=== PATIENT | male | born 1985 | race Two or more races ===

== ENCOUNTER 2023-08-23 20:42 | Emergency (ER) | payer SELFPAY ==
[2023-08-23 20:45] VITALS: BP 155/108; PULSE 99; RESP 18; TEMP 36.7; O2SAT 98
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
[2023-08-23] MEDS: KETOROLAC TROMETHAMINE 60 MG/2 ML VIAL IM (22:22)
== END 2023-08-23 22:34 | disposition home or self-care (01) ==
PROVIDERS: Emergency Provider Emergency Medicine; PCP Nurse Practitioner Family
DX: S09.8XXA Other specified injuries of head, initial encounter (principal); S00.01XA Abrasion of scalp, initial encounter; S00.83XA Contusion of other part of head, initial encounter; R68.84 Jaw pain; V43.52XA Car driver injured in collision with other type car in traffic accident, initial encounter; F17.210 Nicotine dependence, cigarettes, uncomplicated
CPT/HCPCS: 70450; 70486; 72125; 96372; 99285

== ENCOUNTER 2024-03-19 22:37 | Emergency (ER) | payer MEDICAID, SELFPAY ==
--- OUTSIDE RECORDS SUMMARY | 2024-03-19 22:44 | XMS_ITS | CCD ---
Author Organization [facility] ion 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 Name Role Phone TANIA CARMONA Unavailable Unavailable GHADA FELICIANO Unavailable Unavailable TANIA, RUDDY R Unavailable Unavailable TANIA, RUDDY R Unavailable Unavailable MATTHEW HERMOSILLO Unavailable Unavailable KHADIJAH MCKEON Admitting Unavailable KHADIJAH MCKEON Attending Unavailable SELF, REFERRED Primary Care Unavailable SELF, REFERRED Referring Unavailable CO Procedure Practitioner Unavailab KHADIJAH Brown Surgeon Unavailable AYLEEN SALEEM Admitting Unavailable AYLEEN SALEEM Attending Unavailable SELF, REFERRED Primary Care Unavailable SELF, REFERRED Referring Unavailable FAHAD AYERS Admitting Unavailable MAFAHAD Attending Unavailable SELF, REFERRED Primary Care Unavailable SELF, REFERRED Referring Unavailable Gianni Han Attending Unavailab Gianni Tucker Admitting Unavailab le TRISTEN STAFF Primary Care Unavailable ABBY CRUZ Primary Care Unavailable ABBY CRUZ Primary Care Unavailable MALDONADO, MARILYN Attending Unavailable MALDONADOMARILYN Referring Unavailable ABBY CRUZ Primary Care Unavailable Allergies Allergy Classification Reported Allergen(s) Allergy Type Date of Onset Reaction(s) Facility (1 source) Valproate Drug Allergy 8 [facility] Repository (1 source) Valproate; Translations: [DIVALPROEX SODIUM] Drug Allergy 7 [facility] Repository (1 source) DIVALPROEX; Translations: [DIVALPROEX] Propensity to adverse reactions to drug (disorder) 9 [facility] Repository Problems Active Problems Problem Classification Problem Date Documented Da te Episodic/Chronic Epilepsy; convulsions (1 source) Other generalized epilepsy and epileptic syndromes, not intractable, without status epilepticus; Translations: [OTH GENERALIZED EPILEPSY, NOT INTRACTABLE, W/O STAT EPI] Onset: 03-08-2018 Chronic External cause codes: Other specified; NEC (1 source) Legal intervention involving other specified means, suspect injured, initial encounter; Translations: [LEGAL INTERVNT INVOLVING OTH MEANS, SUSPECT INJURED, INIT] Onset: 01-17-2019 Headache; including migraine (1 source) Headache; including migraine Onset: 12-03-2023 Nonspecific chest pain (5 sources) Chest pain, unspecified; Translations: [Other chest pain] Onset: 11-19-2017 Episodic Other injuries and conditions due to external causes (1 source) Foreign body on external eye, part unspecified, right eye, initial encounter; Translations: [FOREIGN BODY ON EXTERNAL EYE, PART UNSP, RIGHT EYE, INIT] Onset: 01-17-2019 Other injuries and conditions due to external causes (1 source) Foreign body on external eye, part unspecified, left eye, initial encounter; Translations: [FOREIGN BODY ON EXTERNAL EYE, PART UNSP, LEFT EYE, INIT] Onset: 01-17-2019 Other lower respiratory disease (1 source) Hemoptysis; Translations: [HEMOPTYSIS] Onset: 11-25-2018 Episodic Other nervous system disorders (1 source) Other chronic pain; Translations: [Other chronic pain] Onset: 11-19-2017 Chronic Other non-traumatic joint disorders (1 source) Pain in left hip; Translations: [Pain in left hip] Onset: 03-07-2024 Episodic Other non-traumatic joint disorders (1 source) Hip pain Onset: 03-07-2024 Episodic Substance-related disorders (1 source) Nicotine dependence, cigarettes, uncomplicated; Translations: [NICOTINE DEPENDENCE, CIGARETTES, UNCOMPLICATED] Onset: 11-25-2018 Chronic Unclassified (2 sources) C/O VOMITING BLOOD Onset: 11-25-2018 Unclassified (4 sources) Other specified disorders of eye and adnexa; Translations: [OTHER SPECIFIED DISORDERS OF EYE AND ADNEXA] Onset: 01-17-2019 Unclassified (1 source) Cold Like Symptoms Onset: 12-03-2023 Past or Other Problems Problem Classification Problem Date Documented Date Episodic/Chronic Chronic obstructive pulmonary disease and bronchiectasis (1 source) Bronchitis, not specified as acute or chronic; Translations: [Bronchitis, not specified as acute or chronic] Onset: 12-03-2023 Episodic Epilepsy; convulsions (4 sources) Unspecified convulsions; Translations: [Unspecified convulsions] Onset: 06-28-2017 Episodic Intracranial injury (1 source) Personal history of traumatic brain injury; Translations: [PERSONAL HISTORY OF TRAUMATIC BRAIN INJURY] Onset: 03-08-2018 Episodic Other non-traumatic joint disorders (1 source) Pain in right shoulder; Translations: [Pain in right shoulder] Onset: 11-19-2017 Episodic Residual codes; unclassified (1 source) Patient's other noncompliance with medication regimen; Translations: [PATIENT'S OTHER NONCOMPLIANCE WITH MEDICATION REGIMEN] Onset: 03-08-2018 Episodic Superficial injury; contusion (1 source) Abrasion of other part of head, initial encounter; Translations: [ABRASION OF OTHER PART OF HEAD, INITIAL ENCOUNTER] Onset: 03-08-2018 Episodic Results Test Name Value Interpretation Reference Range Facility XR HIP LT 2-3 VIEWS W OR WO PELVISon 03-07-2024 XR HIP LT 2-3 VIEWS W OR WO PELVIS XR HIP LT 2-3 VIEWS W OR WO PELVIS CLINICAL INFORMATION: L hip pain TECHNIQUE: XR HIP LT 2-3 VIEWS W OR WO PELVIS 3 views left hip were obtained. Mild left hip osteoarthritic changes noted. There is no acute fracture. No malalignment. IMPRESSION: Mild osteoarthritis. Finalized by Santiago Burton MD on 03/07/2024 6:29 PM [facility] SARS/FLU A+B/RSV by NAAT/[facility]2023 SARS/FLU A+B/RSV by NAAT/Molecular FLU A PCR Negative (qualifier value) FLU B PCR Negative (qualifier value) RSV by PCR Negative (qualifier value) SARS CoV 2 Not detected (qualifier value) NOTE The Xpert Xpress SARS-CoV-2/Flu/RSV Plus test is a rapid, multiplexed real-time RT-PCR test intended for the simultaneous qualitative detection and differentiation of SARS-CoV-2, influenza A, influenza B and respiratory syncytial virus (RSV) viral RNA from individuals suspected of respiratory viral infection consistent with COVID-19 by their healthcare provider. This test has not been validated in asymptomatic patients. The Xpert Xpress SARS-CoV-2 test is intended for use by qualified and trained operators who are performing tests using either Agnitus or Art of the Dream systems and is limited to laboratories that meet the CLIA requirements to perform high and moderate complexity tests. The Xpert Xpress SARS-CoV-2/Flu/RSV Plus is only for use under the Food and Drug Administration's Emergency Use Authorization. Results are for the simultaneous detection and differentiation of SARS-CoV-2, influenza A, influenza B and RSV nucleic acids in clinical specimens. SARS-CoV-2, influenza A, influenza B and RSV RNA identified by this test are generally detectable in upper respiratory samples during the acute phase of infection. Positive results are indicative of the presence of the identified virus, but do not rule out bacterial infection or co-infection with other pathogens not detected by this test. Clinical correlation with patient history and other diagnostic information is necessary to determine patient infection status. The agent detected may not be the definite cause of disease. Negative results do not preclude SARS-CoV-2, influenza A, influenza B and RSV infection and should not be used as the sole basis for treatment or other patient management decisions. Negative results must be combined with clinical observations, patient history and epidemiological information. An Invalid result may occur with specimen-associated inhibition unable to be resolved with specimen repeat. Fact Sheet for Healthcare Providers: https://www.fda.gov/media /682176/download Fact Sheet for Patients: https://www.fda.gov/media /920099/download Normal [facility] Comment on above: Performed By: #### C OVFLR #### [facility] ([id number]) [address] [place] [address], [place] [address] CBC W/DIFFon 11-25-2018 ABS BASOPHILS 0.1 10*3/uL Normal 0.0-0.2 [facility] Comment on above: Performed By: #### 5 0103 #### [facility] [address] [facility]. [address] ABS IMM GRANS 0.0 10*3/uL Normal 0.0-0.2 [facility] Comment on above: Performed By: #### 5 0103 #### [facility] [address] [facility]. [address] ABS NEUTROPHILS 3.1 10*3/uL Normal 1.6-7.6 [facility] Comment on above: Performed By: #### 5 0103 #### [facility] [address] [facility] [address] Basophils #/vol (Bld) 0.9 % Normal 0.0-1.0 [facility] Comment on above: Performed By: #### 5 0103 #### [facility] [address] [facility] [address] Eosinophils #/vol (Bld) 0.6 10*3/uL High 0.0-0.5 [facility] Comment on above: Performed By: #### 0103 #### [facility] [address] Eosinophils/100 WBC (Bld) 9.1 % High 0.0-6.0 [facility] Comment on above: Performed By: #### 3 #### [facility] [address] [facility]. [address] Erythrocyte distribution width Ratio (RBC) 13.4 % Normal 11.5-15.0 [facility] Comment on above: Performed By: #### 5 3 #### [facility] [address] Hematocrit Volume Fraction (Bld) 48.0 % Normal 39.0-50.0 [facility] Comment on above: Performed By: #### 5 3 #### [facility] [address] [facility]. [address] Hemoglobin mass conc (Bld) 16.3 g/dL Normal 13.0-17.0 [facility] Comment on above: Performed By: #### 5 3 #### [facility] [address] IMMATURE GRANS 0.3 % Normal 0.0-1.0 [facility] Comment on above: Performed By: #### 5 3 #### [facility] [address] Lymphocytes #/vol (Bld) 2.2 10*3/uL Normal 1.2-4.0 [facility] Comment on above: Performed By: #### 5 0103 #### [facility] [address] [facility] [place] [address], [facility] Lymphocytes/100 WBC (Bld) 32.8 % Normal 20.0-45.0 [facility] Comment on above: Performed By: #### 0103 #### [facility] [address] MCH Entitic mass (RBC) 30.9 pg Normal 27.0-33.0 [facility] Comment on above: Performed By: #### 3 #### [facility] [address] MCHC mass conc (RBC) 34.0 g/dL Normal 32.0-35.0 [facility] Comment on above: Performed By: #### 3 #### [facility] [address] MCV Entitic volume (RBC) 90.9 fL Normal 82.0-98.0 [facility] Comment on above: Performed By: #### 3 #### [facility] [address] [place] [address], [facility] Monocytes #/vol (Bld) 0.8 10*3/uL Normal 0.1-1.0 [facility] Comment on above: Performed By: #### 3 #### [facility] [address] [place] [address], [facility] MONOS 12.3 % High 5.0-12.0 [facility] Comment on above: Performed By: #### 3 #### [facility] [address] [place] [address], [facility] Neutrophils/100 WBC (Bld) 44.6 % Normal 40.0-72.0 [facility] Comment on above: Performed By: #### 5 0103 #### [address] Nucleated RBC/100 WBC Ratio (Bld) 0 % Normal 0-0 [facility] Comment on above: Performed By: #### 5 0103 #### [facility] [address] PLAT CNT 297 10*3/uL Normal 150-400 [facility] Comment on above: Performed By: #### 5 0103 #### [address] RBC #/vol (Bld) 5.28 10*6/uL Normal 4.20-5.70 [facility] Comment on above: Performed By: #### 5 0103 #### [address] WBC #/vol (Bld) 6.83 10*3/uL Normal 4.00-10.60 [facility] Comment on above: Performed By: #### 5 0103 #### [address] CHEST AND LATERALon 11-25-19 19 CHEST AND LATERAL [facility] Department of Radiology [address] [place], [place] [id number] Patient Name: MEERA GEORGE : 1985 Sex: M Age: Race: White Pt. Location: [facility] Patient Status: D Ordered Date: 11/25/2018 7:50:00 AM Completed Date: 11/25/2018 08:16 AM Requesting Provider: KHADIJAH MCKEON Attending Provider: KHADIJAH MCKEON Report Copy To: Signs & Symptoms: Acute Respiratory Distress History: Patient history not available Comments: R/O Infiltrates Exam: CHEST AND LATERAL CHEST AND LATERAL 11/25/2018 8:16 AM EST SIGNS AND SYMPTOMS: Acute Respiratory Distress TECHNOLOGIST COMMENTS: Chest pain and shortness of breath X 1 year. Vomiting blood with a coffee ground appearance QUESTION FOR THE RADIOLOGIST: R/O Infiltrates PROTOCOL: AP(PA) and Lateral views were obtained. COMPARISON: November 19, 2017 FINDINGS: The trachea is midline and the cardiomediastinal silhouette is within normal limits. Lung vazquez and costophrenic sulci are clear. No evidence of pneumothorax or free air under the diaphragm. No acute osseous abnormality is identified. IMPRESSION: No evidence of pneumonia or other acute cardiopulmonary process. Approved by:Cassandra Pedraza on 11/25/2018 9:04 AM EST. I, Lana Kaminski, have reviewed the images and report and concur with these findings. Electronically signed by:Lana Kaminski. Transcribed by: [id number], User Resident: CASSANDRA PEDRAZA Electronically Signed by: LANA KAMINSKI @ 11/25/2018 04:22 PM I personally read this/these film(s) with this resident Normal [facility] Comment on above: Order Comment: R/O I nfiltrates COMP METABOLIC PANELon 11-25 Albumin mass conc 4.5 g/dL Normal 3.5-5.7 [facility] Comment on above: Performed By: #### 3 5200, 23970, 86613 #### [facility] [address] [place] [address], [facility] ALKALINE PHOSPH 84 IU/L Normal 34-104 [facility] Comment on above: Performed By: #### 3 5200, 31448, 80593 #### [facility] [address] [place] [address], [place] ALT enzyme act/vol 17 U/L Normal 7-52 [facility] Comment on above: Performed By: #### 3 5200, 21920, 59943 #### [facility] [address] [place] [address], [place] AST enzyme act/vol 18 U/L Normal 13-39 [facility] Comment on above: Performed By: #### 3 5200, 21027, 76976 #### [facility] [address] [place] [address], [place] Bilirubin mass conc 0.4 mg/dL Normal 0.3-1.0 [facility] Comment on above: Performed By: #### 3 0, 35753, 53898 #### [facility] [address] [place] [address], [place] Calcium mass conc 9.2 mg/dL Normal 8.6-10.3 [facility] Comment on above: Performed By: #### 3 0, 69670, 68234 #### [facility] [address] [place] [address], [place] Chloride molar conc 103 mmol/L Normal 98-107 [facility] Comment on above: Performed By: #### 3 0, 83916, 26387 #### [facility] [address] [place] [address], [place] CO2 molar conc 24 mmol/L Normal 21-31 [facility] Comment on above: Performed By: #### 3 5200, 96085, 15754 #### [facility] [address] [place] [address], [place] Creatinine mass conc 0.84 mg/dL Normal 0.70-1.30 [facility] Comment on above: Performed By: #### 3 5200, 97725, 12770 #### [facility] [address] [place] [address], [place] GFR/1.73 sq M predicted among blacks MDRD vol rate/area (S/P/Bld) mL/min/{1.73_m2} Normal >60 [facility] Comment on above: Performed By: #### 3 5200, 21448, 51409 #### [facility] [address] [place] [address], [place] GFR/1.73 sq M predicted among non-blacks MDRD vol rate/area (S/P/Bld) mL/min/{1.73_m2} Normal >60 [facility] Comment on above: Performed By: #### 3 5200, 22927, 51824 #### [facility] [address] [place] [address], [place] Glucose mass conc 89 mg/dL Normal 70-100 [facility] Comment on above: Performed By: #### 3 5200, 49080, 83415 #### [facility] [address] [place] [address], [place] Potassium molar conc 3.8 mmol/L Normal 3.5-5.1 [facility] Comment on above: Performed By: #### 3 5200, 09545, 14533 #### [facility] [address] [place] [address], [place] Protein mass conc 7.5 g/dL Normal 6.0-8.3 [facility] Comment on above: Performed By: #### 3 5200, 43080, 22504 #### [facility] [address] [place] [address], [place] Sodium molar conc 140 mmol/L Normal 136-145 [facility] Comment on above: Performed By: #### 3 5200, 97064, 94987 #### [facility] [address] [place] [address], [facility] Urea nitrogen mass conc 10 mg/dL Normal 7-25 [facility] Comment on above: Performed By: #### 3 5200, 46626, 05645 #### [facility] [address] [place] [address], [facility] LIPASE BLOODon 11-25-2018 Lipase enzyme act/vol 19 Units/L Normal 11-82 [facility] Comment on above: Performed By: #### 3 5200, 92826, 56122 #### [facility] [address] [place] [address], [facility] TROPONIN-Ion 11-25-2018 Troponin I.cardiac mass conc 0.00 ng/mL Normal 0.00-0.04 [facility] Comment on above: Result Comment: REFE RENCE RANGES: 0.00 - 0.14 ng/ml NEGATIVE 0.15 - 0.25 ng/ml INDETERMINATE > 0.25 ng/ml INDICATIVE OF AN M.I. Performed By: #### 3 5200, 37543, 66970 #### [facility] [address] [facility] [place] [address], [facility] XR CHEST (2 VW)on 11-19-2017 XR CHEST (2 VW) EXAMINATION:2 VIEWS OF THE RIGHT SCAPULA; TWO VIEWS OF THE CHEST11/19/2017 3:28 pmCOMPARISON:Chest radiograph 12/03/2016, shoulder radiographs 02/27/2013, CT 12/03/2016HISTORY:ORDERIN G SYSTEM PROVIDED HISTORY: pain right shoulderTECHNOLOGIST PROVIDED HISTORY:Reason for exam:->pain right shoulderOrdering Physician Provided Reason for Exam: shoulder painAcuity: AcuteType of Exam: InitialFINDINGS:Chest: Lungs are well expanded and clear. No pneumothorax, pleural effusionor airspace consolidation. Normal heart size and mediastinal contours.Normal pulmonary vascular markings. No displaced rib fracture or any otheracute osseous abnormality.Scapula: Right scapula is intact. No fracture or malalignment. Limitedevaluation of shoulder demonstrate normal anatomic alignment withoutdislocation.IMPRES VIRI: No acute cardiopulmonary findings.Scapula appears intact.Interpreted by:SCAR Torrezigned by:Ronny Hernandez MD11/19/17inal result Normal [facility] XR SCAPULA RIGHT (COMPLETE)o n 11-19-2017 XR SCAPULA RIGHT (COMPLETE) EXAMINATION:2 VIEWS OF THE RIGHT SCAPULA; TWO VIEWS OF THE CHEST11/19/2017 3:28 pmCOMPARISON:Chest radiograph 12/03/2016, shoulder radiographs 02/27/2013, CT 12/03/2016HISTORY:ORDERIN G SYSTEM PROVIDED HISTORY: pain right shoulderTECHNOLOGIST PROVIDED HISTORY:Reason for exam:->pain right shoulderOrdering Physician Provided Reason for Exam: shoulder painAcuity: AcuteType of Exam: InitialFINDINGS:Chest: Lungs are well expanded and clear. No pneumothorax, pleural effusionor airspace consolidation. Normal heart size and mediastinal contours.Normal pulmonary vascular markings. No displaced rib fracture or any otheracute osseous abnormality.Scapula: Right scapula is intact. No fracture or malalignment. Limitedevaluation of shoulder demonstrate normal anatomic alignment withoutdislocation.IMPRES VIRI: No acute cardiopulmonary findings.Scapula appears intact.Interpreted by:SCAR Torrezigned by:oRnny Hernandez MD11/19/17inal result Normal [facility] Zonegramon 06-30-2017 Zonegram <2 Low 10-40 [facility] Comment on above: Result Comment: (NOT E)INTERPRETIVE INFORMATION: ZonisamideTherapeutic range: Not well established.Toxic: Greater than 80 ug/mLThe proposed therapeutic range for seizure control is 10-40 ug/mL.Toxic concentrations may cause coma, seizures and cardiacabnormalities. Pharmacokinetics varies widely, particularly withco-medications and/or compromised renal function.Performed by [facility],[address] [place] [id number] ycb.[employer], Bernardo Wheat MD, Lab. [address] [id number] ([phone] Performed By: #### C DP, BMP, EDTOX, AZON ####[place] [place], [place] [id number] Basic Metabolic Profon 10-02 -2017 (cont.) Normal [facility] Comment on above: Result Comment: Aver age GFR for 30-39 years old: 107 mL/min/1.73sq mChronic Kidney Disease: <60 mL/min/1.73sq mKidney failure: <15 mL/min/1.73sq meGFR calculated using average adult body mass. Additional eGFR calculator available at:http://[email or web address]/multiple_crcl_[email or web address] [facility] [address] [place] [address] Performed By: #### C BC, BMP ####[facility] [address] [place] [address] Anion gap 15 mmol/L Normal 9-17 [facility] Comment on above: Performed By: #### C BC, BMP ####[facility] HospitalStudent [facility] Advisors GroupXeacrbgekoyu[address] [place] [address] Calcium 8.5 mg/dL Low 8.6-10.4 [facility] Comment on above: Performed By: #### C BC, BMP ####[facility] HospitalStudent Loan Advisors GroupYwebfojniebc[address] [place] [address] Chloride 102 mmol/L Normal 98-107 [facility] Comment on above: Performed By: #### C BC, BMP ####[facility] HospitalStudent [facility] Advisors GroupVwieiytshlll[address] [place] [address] CO2 22 mmol/L Normal 20-31 [facility] Comment on above: Performed By: #### C BC, BMP ####[facility] Hospital[facility] Advisors GroupRtvqybsqdjuy4682 [place] [address] Creatinine 1.11 mg/dL Normal 0.70-1.20 [facility] Comment on above: Performed By: #### C BC, BMP ####[facility] HospitalStudent Loan Advisors GroupApbtyypcstpk1573 [place] [address] eGFR (non-black) mL/min/{1.73_m2} Normal >[address] [facility] Comment on above: Performed By: #### C BC, BMP ####[facility] [place] [address] Glucose mass conc 88 mg/dL Normal 70-99 [facility] Comment on above: Performed By: #### C BC, BMP ####[facility] [place] [address] Potassium molar conc 3.9 mmol/L Normal 3.7-5.3 [facility] Comment on above: Performed By: #### C BC, BMP ####[address] [address] Sodium 139 mmol/L Normal 135-144 [facility] Comment on above: Performed By: #### C BC, BMP ####[address] [address] Urea nitrogen 13 mg/dL Normal -20 [facility] Comment on above: Performed By: #### C BC, BMP ####[facility] [place] [address] BUN/CRE Ratio NOT REPORTED Normal - [facility] Comment on above: Performed By: #### C BC, BMP ####[address] [place] [address] Staging: NOT REPORTED Normal [facility] Comment on above: Performed By: #### C BC, BMP ####[facility]2222 [place] [address] CBCon 06-29-2017 Erythrocyte distribution width Auto Ratio (RBC) 13.7 % Normal 12.5-15.4 [facility] Comment on above: Performed By: #### C BC, BMP ####[facility] [place] [address] Erythrocytes (RBC) 4.58 10*6/uL Normal 4.5-5.9 [facility] Comment on above: Performed By: #### C BC, BMP ####[address] [address] Hematocrit (HCT) 41.8 % Normal 41-53 [facility] Comment on above: Performed By: #### C BC, BMP ####[address] [address] Hemoglobin mass conc (Bld) 14.5 g/dL Normal 13.5-17.5 [facility] Comment on above: Performed By: #### C BC, BMP ####[address] [address] MCH 31.8 pg Normal 26-34 [facility] Comment on above: Performed By: #### C BC, BMP ####[address] [address] MCHC mass conc (RBC) 34.8 g/dL Normal 31-37 [facility] Comment on above: Performed By: #### C BC, BMP ####[address] [address] MCV 91.1 fL Normal 80-100 [facility] Comment on above: Performed By: #### C BC, BMP ####[address] [address] Platelet mean volume (PMV) 7.7 fL Normal 6.0-12.0 [facility] Comment on above: Result Comment: [facility] [address] [place] [address] Performed By: #### C BC, BMP ####[address] [address] Platelets 213 10*3/uL Normal 140-450 [facility] Comment on above: Performed By: #### C BC, BMP ####[address] [address] WBC (Leukocytes) 14.3 10*3/uL High 3.5-11.0 [facility] Comment on above: Performed By: #### C BC, BMP ####[address] [address] Discharge Summaryon 06-29-20 17 HIM IP Note OR Loan And Credit Manager Normal [facility] Ammoniaon 06-28-2017 Ammonia 34 umol/L Normal 16-60 [facility] Comment on above: Result Comment: [address] [address] Performed By: #### A MON, CK, MG, PRITESH, ANDREW, TSHX ####[address] [address] Basic Metabolic Profon 06-28 (cont.) Normal [facility] Comment on above: Result Comment: Aver age GFR for 30-39 years old: 107 mL/min/1.73sq mChronic Kidney Disease: <60 mL/min/1.73sq mKidney failure: <15 mL/min/1.73sq meGFR calculated using average adult body mass. Additional eGFR calculator available at:http://www.[employer].Triggit/multiple_crcl_2012.htmVirginia [place] [address] [place] [address] Performed By: #### C DP, BMP, EDTOX, AZON ####[address] [address] Anion gap 32 mmol/L High 9-17 [facility] Comment on above: Performed By: #### C DP, BMP, EDTOX, AZON ####[address] [address] Calcium 9.1 mg/dL Normal 8.6-10.4 [facility] Comment on above: Performed By: #### C DP, BMP, EDTOX, AZON ####[facility] [address] [place] [address] Chloride 95 mmol/L Low 98-107 [facility] Comment on above: Performed By: #### C DP, BMP, EDTOX, AZON ####[address] [place] [address] CO2 13 mmol/L Low 20-31 [facility] Comment on above: Performed By: #### C DP, BMP, EDTOX, AZON ####[facility] [place] [address] Creatinine 1.09 mg/dL Normal 0.70-1.20 [facility] Comment on above: Performed By: #### C DP, BMP, EDTOX, AZON ####[address] [address] eGFR (non-black) mL/min/{1.73_m2} Normal >[address] [facility] Comment on above: Performed By: #### C DP, BMP, EDTOX, AZON ####[facility] [place] [address] Glucose mass conc 132 mg/dL High 70-99 [facility] Comment on above: Performed By: #### C DP, BMP, EDTOX, AZON ####[facility] [place] [address] Potassium molar conc 3.4 mmol/L Low 3.7-5.3 [facility] Comment on above: Performed By: #### C DP, BMP, EDTOX, AZON ####[address] [place] [address] Sodium 140 mmol/L Normal 135-144 [facility] Comment on above: Performed By: #### C DP, BMP, EDTOX, AZON ####[address] [address] Urea nitrogen 14 mg/dL Normal -20 [facility] Comment on above: Performed By: #### C DP, BMP, EDTOX, AZON ####[address] [address] BUN/CRE Ratio NOT REPORTED Normal - [facility] Comment on above: Performed By: #### C DP, BMP, EDTOX, AZON ####[address] [address] Staging: NOT REPORTED Normal [facility] Comment on above: Performed By: #### C DP, BMP, EDTOX, AZON ####[address] [address] CBC with Diffon 06-28-2017 Abs. Basophil 0.10 k/uL Normal 0.0-0.2 [facility] Comment on above: Result Comment: [address] [address] Performed By: #### C DP, BMP, EDTOX, AZON ####[address] [address] Abs.Neutrophil (Seg) 13.40 k/uL High 1.8-7.7 [facility] Comment on above: Performed By: #### C DP, BMP, EDTOX, AZON ####[address] [address] Basophils/100 WBC Auto (Bld) 0 % Normal [facility] Comment on above: Performed By: #### C DP, BMP, EDTOX, AZON ####[address] [address] Eosinophils 0.10 10*3/uL Normal 0.0-0.4 [facility] Comment on above: Performed By: #### C DP, BMP, EDTOX, AZON ####[address] [address] Eosinophils/100 leukocytes 1 % Normal [facility] Comment on above: Performed By: #### C DP, BMP, EDTOX, AZON ####[address] [address] Erythrocyte distribution width Auto Ratio (RBC) 14.3 % Normal 12.5-15.4 [facility] Comment on above: Performed By: #### C DP, BMP, EDTOX, AZON ####[address] [address] Erythrocytes (RBC) 5.50 10*6/uL Normal 4.5-5.9 [facility] Comment on above: Performed By: #### C DP, BMP, EDTOX, AZON ####[address] [address] Hematocrit (HCT) 51.0 % Normal 41-53 [facility] Comment on above: Performed By: #### C DP, BMP, EDTOX, AZON ####[address] [address] Hemoglobin mass conc (Bld) 17.1 g/dL Normal 13.5-17.5 [facility] Comment on above: Performed By: #### C DP, BMP, EDTOX, AZON ####[address] [address] Lymphocytes 3.20 10*3/uL Normal 1.0-4.8 [facility] Comment on above: Performed By: #### C DP, BMP, EDTOX, AZON ####[address] [address] Lymphocytes/100 leukocytes 18 % Normal [facility] Comment on above: Performed By: #### C DP, BMP, EDTOX, AZON ####[address] [address] MCH 31.1 pg Normal 26-34 [facility] Comment on above: Performed By: #### C DP, BMP, EDTOX, AZON ####[address] [address] MCHC mass conc (RBC) 33.6 g/dL Normal 31-37 [facility] Comment on above: Performed By: #### C DP, BMP, EDTOX, AZON ####[address] [address] MCV 92.6 fL Normal 80-100 [facility] Comment on above: Performed By: #### C DP, BMP, EDTOX, AZON ####[address] [address] Monocytes 1.20 10*3/uL Normal 0.1-1.2 [facility] Comment on above: Performed By: #### C DP, BMP, EDTOX, AZON ####[address] [address] Monocytes/100 leukocytes 7 % Normal [facility] Comment on above: Performed By: #### C DP, BMP, EDTOX, AZON ####[address] [address] Neutrophil (Seg) 74 % Normal [facility] Comment on above: Performed By: #### C DP, BMP, EDTOX, AZON ####[address] [address] Platelet mean volume (PMV) 8.2 fL Normal 6.0-12.0 [facility] Comment on above: Performed By: #### C DP, BMP, EDTOX, AZON ####[address] [address] Platelets 318 10*3/uL Normal 140-450 [facility] Comment on above: Performed By: #### C DP, BMP, EDTOX, AZON ####[address] [address] WBC (Leukocytes) 18.0 10*3/uL High 3.5-11.0 [facility] Comment on above: Performed By: #### C DP, BMP, EDTOX, AZON ####[address] [address] Auto Diff Performed NOT REPORTED Normal [facility] Comment on above: Performed By: #### C DP, BMP, EDTOX, AZON ####[facility] [address] [address] Erythrocyte morphology NOT REPORTED Normal [facility] Comment on above: Performed By: #### C DP, BMP, EDTOX, AZON ####[address] [address] Platelets NOT REPORTED Normal [facility] Comment on above: Performed By: #### C DP, BMP, EDTOX, AZON ####[address] [address] WBC Morphology NOT REPORTED Normal [facility] Comment on above: Performed By: #### C DP, BMP, EDTOX, AZON ####[address] [address] [address] HEAD WO CONTRASTon 2016 CT HEAD WO CONTRAST EXAMINATION:CT OF TH E HEAD WITHOUT CONTRAST 06/28/2017 4:52 pmTECHNIQUE:CT of the head was performed without the administration of intravenouscontrast. Dose modulation, iterative reconstruction, and/or weight basedadjustment of the mA/kV was utilized to reduce the radiation dose to as lowas reasonably achievable.COMPARISON:NovHISTORY:ORDERING SYSTEM PROVIDED HISTORY: seizuresFINDINGS:BRAIN/VE NTRICLES: There is no acute intracranial hemorrhage, mass effect ormidline shift. No abnormal extra-axial fluid collection. The mattson-whitedifferentiation is maintained without evidence of an acute infarct. There isno evidence of hydrocephalus.ORBITS: The visualized portion of the orbits demonstrate no acute abnormality.SINUSES: The visualized paranasal sinuses and mastoid air cells demonstrateno acute abnormality.SOFT TISSUES/SKULL: No acute abnormality of the visualized skull or softtissues.IMPRESSION: Negative CT brain with no acute intracranial abnormality.Interpreted by:SCRA Wilburnigned by:Elizabeth Higgins MD06/28/17Final result Normal [facility] Creatine Kinaseon 06-28-2017 Creatine kinase (CK) 191 U/L Normal 39-308 [facility] Comment on above: Result Comment: Daily [employer] [address] [place] [address] Performed By: #### A MON, CK, MG, PRITESH, ANDREW, TSHX ####[facility] [address] [place] [address] Drug Scr, Abuse, Uron 2016 Amphetamine(s),Ur Negative Normal NEG [facility] Comment on above: Result Comment: (Pos itive cutoff 1000 ng/mL) Performed By: #### D AU ####[employer] [place] [address] Barbiturate(s),Ur Negative Normal NEG [facility] Comment on above: Result Comment: (Pos itive cutoff 200 ng/mL) Performed By: #### D AU ####[facility] HospitalStudent Loan Advisors GroupQmnysolrkunw[address] [place] [address] Base excess Negative Normal NEG [facility] Comment on above: Result Comment: (Pos itive cutoff 300 ng/mL) Performed By: #### D AU ####[facility] Hospital[facility] Loan Advisors GroupBeaguclzdije[address]2 [place] [address] Benzodiazepine(s) Negative Normal NEG [facility] Comment on above: Result Comment: (Pos itive cutoff 200 ng/mL) Performed By: #### D AU ####[facility] HospitalStudent Loan Advisors GroupLaocfqrtwfpf[address] [place] [address] Cannabinoid(s),Ur Positive Abnormal NEG [facility] Comment on above: Result Comment: (Pos itive cutoff 50 ng/mL) Performed By: #### D AU ####[address] [address] Interpretive Info Assay provides medic al screening only. The absence of expected drug(s) and/or Normal [facility] Comment on above: Result Comment: meta bolite(s) may indicate diluted or adulterated urine, limitations of testing or timing of collection.Testing for legal purposes should be confirmed by another method. To request confirmation of test result, please call the lab within 7 days of sample submission.[employer] [address] [place] [address] Performed By: #### D AU ####[facility] HospitalPivot[facility] [address] [address] Opiate(s), Ur Negative Normal NEG [facility] Comment on above: Result Comment: (Pos itive cutoff 300 ng/mL) Performed By: #### D AU ####[facility] HospitalStudent Loan Advisors GroupWrigpuiyxhdq[address] [place] [address] Oxycodone, Urine Negative Normal NEG [facility] Comment on above: Result Comment: (Pos itive cutoff 100 ng/mL) Performed By: #### D AU ####[facility] HospitalStudent Loan Advisors GroupZzesobkchzin[address] [place] [address] Phencyclidine, Ur Negative Normal NEG [facility] Comment on above: Result Comment: (Pos itive cutoff 25 ng/mL) Performed By: #### D AU ####[facility] HospitalStudent Loan Advisors GroupQfpqvmdhuwzk[address]35 [place] [address] Urine, methadone presence Negative Normal NEG [facility] Comment on above: Result Comment: (Pos itive cutoff 300 ng/mL) Performed By: #### D AU ####[employer] [address] [address] Buprenorphrine, Ur NOT REPORTED Normal NEG [facility] Comment on above: Performed By: #### D AU ####[facility] [address] [address] MDMA, Urine NOT REPORTED Normal NEG [facility] Comment on above: Performed By: #### D AU ####[address] [address] Methamphetamine, Ur NOT REPORTED Normal NEG [facility] Comment on above: Performed By: #### D AU ####[address] [address] Propoxyphene,Urine NOT REPORTED Normal NEG [facility] Comment on above: Performed By: #### D AU ####[address] [address] Urine, tricyclic antidepressants NOT REPORTED Normal NEG [facility] Comment on above: Performed By: #### D AU ####[address] [address] ED Noteon 06-28-2017 HIM IP Note OR Loan And Credit Manager Normal [facility] HIM IP Note OR Loan And Credit Manager Normal [facility] HIM IP Note OR Loan And Credit Manager Normal [facility] HIM IP Note OR Loan And Credit Manager Normal [facility] HIM IP Note OR Loan And Credit Manager Normal [facility] HIM IP Note OR Loan And Credit Manager Normal [facility] ED Provider Noteon 7 HIM IP Note OR Loan And Credit Manager Normal [facility] History and Physicalon 06-28 HIM IP Note OR Loan And Credit Manager Normal [facility] Magnesiumon 06-28-2017 Magnesium 2.3 mg/dL Normal 1.6-2.6 [facility] Comment on above: Result Comment: [facility] [address] [place] [address] Performed By: #### A MON, CK, MG, PRITESH, ANDREW, TSHX ####[address] [address] Myoglobinon 06-28-2017 Myoglobin 81 ng/mL High 28-72 [facility] Comment on above: Result Comment: [facility] [address] [place] [address] Performed By: #### A MON, CK, MG, PRITESH, ANDREW, TSHX ####[address] [address] Phosphorus, Inorg.on 017 Phosphorus, Inorg. 3.9 mg/dL Normal 2.5-4.5 [facility] Comment on above: Result Comment: [employer] [address] [place] [address] Performed By: #### A MON, CK, MG, PRITESH, ANDREW, TSHX ####[address] [address] TSH w/reflex to FT4on 2016 Thyroid stimulating hormone (TSH) 0.39 m[IU]/L Normal 0.30-5.00 [facility] Comment on above: Result Comment: [facility] [address] [place] [address] Performed By: #### A MON, CK, MG, PRITESH, ANDREW, TSHX ####[address] [address] Tox Scr, Bld, EDon 7 Acetaminophen mass conc <10 Low 10-30 [facility] Comment on above: Performed By: #### C DP, BMP, EDTOX, AZON ####[facility] [address] [place] [address] Salicylate <1 Low 3-10 [facility] Comment on above: Performed By: #### C DP, BMP, EDTOX, AZON ####[facility] [address] [place] [address] Ethanol mg/dL Normal <10 [facility] Comment on above: Performed By: #### C DP, BMP, EDTOX, AZON ####[facility] [address] [place] [address] Ethanol percent <0.010 Normal [facility] Comment on above: Performed By: #### C DP, BMP, EDTOX, AZON ####[address] [address] Toxic Tricyclic Sc,Bl Negative Normal NEG [facility] Comment on above: Result Comment: [address] [place] [address] Performed By: #### C DP, BMP, EDTOX, AZON ####[address] [address] Encounters Encounter Date Encounter Type Care Provider Facility Start: 03-07-2024 End: 03-08-2024 Emergency department patient visit MARILYN MALDONADO [facility] Start: 12-03-2023 End: 12-03-2023 Emergency department patient visit ABBY CRUZ [facility] Start: 07-06-2023 ambulatory Gianni Garza acility:[facility] Start: 01-17-2019 End: 01-17-2019 Emergency department patient visit AYLEEN SALEEM Facility:[facility] Start: 11-25-2018 End: 11-25-2018 Emergency department patient visit KHADIJAH MCKEON Facility:[facility] Start: 03-08-2018 End: 03-08-2018 Emergency department patient visit FAHAD MA Facility:[facility] Start: 11-19-2017 End: 11-19-2017 Emergency department patient visit TANIA CARMONA [facility] Start: 06-28-2017 End: 06-29-2017 Evaluation and management of inpatient GHADA LOBAR [facility] Procedures Date Procedure Procedure Detail Performing Clinician Start: 11-25-2018 Emergency department patient visit KHADIJAH Walsh MIKE Start: 11-19-2017 Radiologic exam chest 2 views TANIA CARMONA Start: 11-19-2017 Radex scapula complete TANIA CARMONA Start: 11-19-2017 EKG 12-LEAD TANIA YATES IS Start: 06-29-2017 DISCHARGE PATIENT GHADA LOBAR Start: 06-29-2017 TELEMETRY MONITORING BR UCE LOBAR Start: 06-29-2017 BASIC METABOLIC PANEL B RUCE LOBAR Start: 06-29-2017 CBC GHADA LOBA R Start: 06-29-2017 DIET GENERAL GHADA LOBA R Start: 06-28-2017 AMMONIA GHADA LOBA R Start: 06-28-2017 CK GHADA LOBA R Start: 06-28-2017 MAGNESIUM GHADA LOBA R Start: 06-28-2017 MYOGLOBIN, SERUM GHADA LOBAR Start: 06-28-2017 PHOSPHORUS GHADA LOBA R Start: 06-28-2017 TSH WITH REFLEX GHADA L OBAR Start: 06-28-2017 NURSING SWALLOW ASSESSMENT GHADA LOBAR Start: 06-28-2017 PATIENT STATUS (FROM ED OR OR/PROCEDURAL) GHADA LOBAR Start: 06-28-2017 FULL CODE GHADA LOBA R Start: 06-28-2017 NOTIFY PHYSICIAN (SPECIFY) GHADA LOBAR Start: 06-28-2017 REASON FOR NO MECHAN ICAL VTE PROPHYLAXIS GHADA LOBAR Start: 06-28-2017 VITAL SIGNS GHADA LOBA R Start: 06-28-2017 Ct head/brain w/o co ntrast material GHADA LOBAR Start: 06-28-2017 PATIENT STATUS (FROM ED OR OR/PROCEDURAL) GHADA LOBAR Start: 06-28-2017 IP CONSULT TO MARINE PLUMBER AL MEDICINE GHADA LOBAR Start: 06-28-2017 IP CONSULT TO NEUROLOGY GHADA LOBAR Start: 06-28-2017 URINE DRUG SCREEN GHADA LOBAR Start: 06-28-2017 SEIZURE PRECAUTIONS BRU CE LOBAR Start: 06-28-2017 BASIC METABOLIC PANEL B RUCE LOBAR Start: 06-28-2017 CBC WITH AUTO DIFFERENTIAL GHADA LOBAR Start: 10-01-2017 TOX SCR, BLD, ED GHADA LOBAR Start: 06-28-2017 ZONISAMIDE LEVEL GHADA LOBAR Start: 06-28-2017 INSERT PERIPHERAL IV BR UCE LOBAR Payers Date Payer Category Payer Self-pay 2015 Unknown [id number] 2010 Medicaid [id number] 1985 Unknown [id number] [id number] 1986 Unknown [id number] 2.16.8 [id number] 1986 Unknown [id number] 2.16.8 [id number] 1986 Unknown [id number] 2.16.8 [id number] 1986 Unknown [id number] 2.16.8 [id number] Summary Purpose Family History No Family History Records FoundNo Family History Records FoundNo Family History Records FoundNo Family History Records FoundNo Family History Records Found Advance Directives No Advanced Directives Records FoundNo Advanced Directives Records FoundNo Advanced Directives Records FoundNo Advanced Directives Records FoundNo Advanced Directives Records Found Additional Source Comments (unrecognized sect ion and content) No Status Records FoundNo Status Records FoundNo Status Records FoundNo Status Records Found INFORMATION SOURCE (unrecogn ized section and content) DATE CREATED AUTHOR 03/19/2018 [facility] DATE CREATED AUTHOR AUTHOR'S ORGANIZ ATION 03/23/2018 [facility] DATE CREATED AUTHOR AUTHOR'S ORGANIZ ATION 02/15/2019 [facility] DATE CREATED AUTHOR AUTHOR'S ORGANIZ ATION 10/17/2023 [facility] DATE CREATED AUTHOR AUTHOR'S ORGANIZ ATION 03/08/2024 [facility] FOR RECORDS PERTAINING TO PATIENTS WHO ARE OR HAVE BEEN ENROLLED IN A CHEMICAL DEPENDENCY/SUBSTANCEABUSE PROGRAM, SOME INFORMATION MAY BE OMITTED. This clinical summary was aggregated from multiple sources. Caution should be exercised in using it in the provision of clinical care. This summary normalizes information from multiple sources, and as a consequence, information in this document may materially change the coding, format and clinical context of patient data. In addition, data may be omitted in some cases. CLINICAL DECISIONS SHOULD BE BASED ON THE PRIMARY CLINICAL RECORDS. [facility] [email or web address] [facility]. provides no warranty or guarantee of the accuracy or completeness of information in this document.
[2024-03-19 22:59] VITALS: BP 132/86; PULSE 70; TEMP 36.9; O2SAT 98; BMI 25.0
--- NOTE | 2024-03-19 23:06 | XR_ITS ---
The [address] [address] Patient Name: MEERA GEORGE MRN: [id number] date: 1985 Sex: M Assigned Patient Location: ER Current Patient Location: ED.MAIN Accession/Order Number: [id number] Exam Date: 03/19/2024 23:20 Report Date: 03/20/2024 00:40 At the request of: KYREE VILLA Procedure: XR hand RT min 3V EXAM: XR hand RT min 3V, XR wrist RT min 3V HISTORY: injury COMPARISON: None. TECHNIQUE: 3 views of the right wrist and 3 views of the right hand were obtained. FINDINGS: No acute fracture or dislocation is seen. There is remote posttraumatic deformity of the fifth metacarpal mid shaft. The joint spaces are preserved. XR/XR hand RT min 3V IMPRESSION: 1. No acute fracture or dislocation of the right wrist or right hand is seen. If pain persists, repeat radiographs are recommended in 7-10 days. Electronically authenticated by: Song FLEMING Date: 03/20/2024 00:40
--- NOTE | 2024-03-19 23:07 | XR_ITS ---
The [address] [address] Patient Name: MEERA GEORGE MRN: [id number] date: 1985 Sex: M Assigned Patient Location: ER Current Patient Location: ED.MAIN Accession/Order Number: [id number] Exam Date: 03/19/2024 23:20 Report Date: 03/20/2024 00:40 At the request of: KYREE VILLA Procedure: XR wrist RT min 3V EXAM: XR hand RT min 3V, XR wrist RT min 3V HISTORY: injury COMPARISON: None. TECHNIQUE: 3 views of the right wrist and 3 views of the right hand were obtained. FINDINGS: No acute fracture or dislocation is seen. There is remote posttraumatic deformity of the fifth metacarpal mid shaft. The joint spaces are preserved. XR/XR wrist RT min 3V IMPRESSION: 1. No acute fracture or dislocation of the right wrist or right hand is seen. If pain persists, repeat radiographs are recommended in 7-10 days. Electronically authenticated by: Song FLEMING Date: 03/20/2024 00:40
--- NOTE | 2024-03-19 23:08 | PC.NURSE ---
Pain and swelling to right hand, skin pink and warm and pulses present. Ice pack applied.
--- NOTE | 2024-03-19 23:32 | ED.UPPEXIN1 ---
HPI HPI - Extremity Injury (Upper) General Chief Complaint: Extremity Injury, Upper Stated Complaint: UPPER EXTREMITY INJURY, RT Time Seen by Provider: 03/19/24 23:24 Mode of arrival: walk-in History of Present Illness HPI narrative: patient presents with right hand injury. States he was upset and punched the wall . now presents with pain and swelling right hand and wrist Related Data Previous Rx's ?Medication ?Instructions ?Recorded methocarbamol 750 mg tablet 750 mg PO Q6H PRN pain #30 tabs 08/23/23 nabumetone 750 mg tablet 750 mg PO BID PRN pain #20 tabs 08/23/23 Allergies Allergy/AdvReac Type Severity Reaction Status Date / Time levetiracetam [From [facility]] Allergy Unknown Verified 03/19/24 22:59 seizure meds Allergy Unknown Uncoded 03/19/24 22:59 Opioid HPI Opioid Management Most Recent Pain and Opioid Data: No Data to Display Review of Systems ROS Status of ROS 10 or more systems reviewed and unremarkable except as noted in history and below PFSH PFSH Social History Smoking status: Current every day smoker Exam Constitutional Vital Signs, click to edit/add: Last Vital Signs Temp 98.4 F 03/19/24 22:59 Pulse 70 03/19/24 22:59 Resp 18 03/19/24 22:59 BP 132/86 03/19/24 22:59 Pulse Ox 98 03/19/24 22:59 O2 Del Method Room Air 03/19/24 22:59 Common normals: no apparent distress, average body habitus, oriented x3, no limitations, healthy appearing, alert and well nourished [facility] Common normals: normocephalic and head/scalp atraumatic Respiratory Common normals: normal respiratory effort, no retractions, no use of accessory muscles and clear to auscultation bilaterally Cardio Common normals: regular rate, regular rhythm, S1 normal heart sound and S2 normal heart sound Extremity Other: swelling of 2nd and 3rd MCP joints. tender. also tender at wrist. N/V ok Neuro Common normals: oriented x3, CN's II-XII intact bilaterally, moves all extremities, no focal motor deficits and no sensory deficits noted Psych Appearance: grossly normal Course Vital Signs Vital signs: Vital Signs Temperature 98.4 F 03/19/24 22:59 Pulse Rate 70 03/19/24 22:59 Respiratory Rate 18 03/19/24 22:59 Blood Pressure 132/86 03/19/24 22:59 Pulse Oximetry 98 03/19/24 22:59 Oxygen Delivery Method Room Air 03/19/24 22:59 Temperature 98.4 F 03/19/24 22:59 Pulse Rate 70 03/19/24 22:59 Respiratory Rate 18 03/19/24 22:59 Blood Pressure 132/86 03/19/24 22:59 Pulse Oximetry 98 03/19/24 22:59 Oxygen Delivery Method Room Air 03/19/24 22:59 MDM - Extremity Injury (Upper) MDM Narrative Medical decision making narrative: patient presents with right hand and wrist pain. states he struck the wall because he was mad. has swelling at 2nd and rd MCP joints which he states is chronic. has pain of his hand and wrist that is gen. and nonspecific. xray neg for fracture per my preliminary review of the xray. Patient informed of the finding and the plan to splint his hand and wrist. He decided he did not want the splint and walked out without discharge instructions Discharge Plan Discharge Chief Complaint: Extremity Injury, Upper Clinical Impression: Contusion of hand, right, Right wrist sprain Prescriptions / Home Meds: No Action nabumetone 750 mg tablet 750 mg PO BID PRN (Reason: pain) Qty: 20 0RF methocarbamol 750 mg tablet 750 mg PO Q6H PRN (Reason: pain) Qty: 30 0RF Print Language: [place] Referrals: ABBY CRUZ [Primary Care Provider] - 1 week
--- NOTE | 2024-03-19 23:47 | PC.NURSE ---
pt left without his splint placed and left with out being discharged
== END 2024-03-19 23:51 | disposition left against medical advice (07) ==
PROVIDERS: Emergency Provider Internal Medicine; PCP Nurse Practitioner Family
DX: S63.501A Unspecified sprain of right wrist, initial encounter (principal); S60.221A Contusion of right hand, initial encounter; W22.01XA Walked into wall, initial encounter; F17.200 Nicotine dependence, unspecified, uncomplicated; Z53.29 Procedure and treatment not carried out because of patient's decision for other reasons
CPT/HCPCS: 73110; 73130; 99284

== ENCOUNTER 2024-11-21 15:44 | Emergency (ER) | payer SELFPAY ==
[2024-11-21 15:51] VITALS: BP 125/80; PULSE 83; TEMP 36.7; O2SAT 100; BMI 28.2
--- NOTE | 2024-11-21 16:35 | XR_ITS ---
[facility] [place] [id number] Patient Name: MEERA GEORGE MRN: [id number] date: 1985 Sex: M Assigned Patient Location: ED.MAIN Current Patient Location: ER Accession/Order Number: [id number] Exam Date: 11/21/2024 16:55 Report Date: 11/21/2024 16:55 At the request of: ORLANDO RICKS Procedure: XR foot RT min 3V XR foot RT min 3V 11/21/2024 4:44 PM SIGNS AND SYMPTOMS: Fall, lateral right foot pain PROTOCOL: Frontal, lateral, and oblique radiographs of the right foot COMPARISON: None FINDINGS: The bones are in anatomic alignment. The joint spaces are preserved. There is no evidence of acute displaced fracture. No significant soft tissue swelling. There is Achilles surface calcaneal spurring. XR/XR foot RT min 3V IMPRESSION: No fracture or significant soft tissue swelling. Impression dictated by: Hernando Weinstein M.D.11/21/2024 4:55 PM Dictation Location: [place] [address] Electronically authenticated by: [id number] Y Date: 11/21/2024 16:55
--- NOTE | 2024-11-21 16:35 | XR_ITS ---
[address] [address] Patient Name: MEERA GEORGE MRN: [id number] date: 1985 Sex: M Assigned Patient Location: ED.MAIN Current Patient Location: ER Accession/Order Number: [id number] Exam Date: 11/21/2024 16:54 Report Date: 11/21/2024 16:55 At the request of: ORLANDO RICKS Procedure: XR ankle RT min 3V XR ankle RT min 3V 11/21/2024 4:44 PM SIGNS AND SYMPTOMS: Fall with right ankle pain and lateral right foot pain PROTOCOL: Frontal, lateral, and oblique radiographs of the right ankle COMPARISON: None FINDINGS: The ankle mortise preserved. There is no evidence of fracture or dislocation. No significant soft tissue swelling. XR/XR ankle RT min 3V IMPRESSION: No fracture or significant soft tissue swelling. Impression dictated by: Hernando Weinstein M.D.11/21/2024 4:55 PM Dictation Location: [place] [address] Electronically authenticated by: [id number] Y Date: 11/21/2024 16:55
--- NOTE | 2024-11-21 18:02 | ED.LOWEXI1 ---
HPI HPI - Extremity Injury (Lower) General Chief Complaint: Extremity Injury, Lower Stated Complaint: RIGHT FOOT PAIN Time Seen by Provider: 11/21/24 17:54 Source: patient Mode of arrival: walk-in Limitations: no limitations History of Present Illness HPI Narrative: Patient is a 39-year-old male who presents to the emergency department for an injury to the right foot that occurred yesterday. Patient states he twisted his right foot yesterday and today is having worsening pain, swelling and bruising to the right fifth metatarsal into the toes. He is ambulatory. No other associated injuries. Related Data Previous Rx's ?Medication ?Instructions ?Recorded ketorolac 10 mg tablet 10 mg PO TID PRN pain #10 tabs 11/21/24 Allergies Allergy/AdvReac Type Severity Reaction Status Date / Time levetiracetam (From [facility]) Allergy Unknown Verified 03/19/24 22:59 seizure meds Allergy Unknown Uncoded 03/19/24 22:59 Opioid HPI Opioid Management Most Recent Pain and Opioid Data: No Data to Display Review of Systems ROS Constitutional Denies: fever or chills Ears, nose, mouth, and throat Denies: throat pain or nasal congestion Cardiovascular Denies: chest pain Respiratory Denies: shortness of breath Gastrointestinal Denies: nausea or vomiting Musculoskeletal Reports: extremity pain; Denies: back pain or neck pain Hematologic/Lymphatic Denies: easy bruising or easy bleeding PFSH PFSH Social History Smoking status: Current every day smoker Exam Narrative Exam Narrative: Gen.: Awake, alert, in no distress Head: Normocephalic, atraumatic ENT: Moist mucous membranes Respiratory: No respiratory distress Extremities: Moves extremities equally, normal flexion and extension of the toes in the right foot. 2+ right DP pulse. No obvious deformity noted. Mild swelling noted of the anterolateral right foot Psych: Normal mood and affect Neuro: No focal neuro deficit Skin: Warm, dry, intact Constitutional Vital Signs, click to edit/add: Last Vital Signs Temp 98.0 F 11/21/24 15:51 Pulse 83 11/21/24 15:51 Resp 18 11/21/24 15:51 BP 125/80 11/21/24 15:51 Pulse Ox 100 11/21/24 15:51 O2 Del Method Room Air 11/21/24 15:51 Course Vital Signs Vital signs: Vital Signs Temperature 98.0 F 11/21/24 15:51 Pulse Rate 83 11/21/24 15:51 Respiratory Rate 18 11/21/24 15:51 Blood Pressure 125/80 11/21/24 15:51 Pulse Oximetry 100 11/21/24 15:51 Oxygen Delivery Method Room Air 11/21/24 15:51 Temperature 98.0 F 11/21/24 15:51 Pulse Rate 83 11/21/24 15:51 Respiratory Rate 18 11/21/24 15:51 Blood Pressure 125/80 11/21/24 15:51 Pulse Oximetry 100 11/21/24 15:51 Oxygen Delivery Method Room Air 11/21/24 15:51 MDM - Extremity Injury (Lower) MDM Narrative Medical decision making narrative: X-rays of the right foot and ankle read by the radiologist with no evidence of fracture or dislocation. Patient placed in an Nacho wrap and postop shoe and remains neurovascularly intact. NSAIDs given for home. Return to the ER if symptoms change or worsen. Rest, ice, elevate. SUPERVISED APC VISIT, PHYSICIAN ATTESTATION: Based on the medical record the care appears appropriate. ? Medical Records Attestation: I reviewed the patient's medical records. Imaging Data Xr foot: Attestation: I have reviewed the pertinent imaging results. Radiologist's impression: ITS Impressions Ankle X-Ray 11/21/24 16:35 IMPRESSION: No fracture or significant soft tissue swelling. Impression dictated by: Hernando Weinstein M.D.11/21/2024 4:55 PM Dictation Location: [place] Electronically authenticated by: [id number] Y Date: 11/21/2024 16:55 Foot X-Ray 11/21/24 16:35 IMPRESSION: No fracture or significant soft tissue swelling. Impression dictated by: Hernando Weinstein M.D.11/21/2024 4:55 PM Dictation Location: [place] Electronically authenticated by: [id number] Y Date: 11/21/2024 16:55 Discharge Plan Discharge Chief Complaint: Extremity Injury, Lower Clinical Impression: Right foot sprain Patient Disposition: Home, Self-Care Time of Disposition Decision: 18:00 Condition: Good Prescriptions / Home Meds: New ketorolac 10 mg tablet 10 mg PO TID PRN (Reason: pain) Qty: 10 0RF Print Language: Korean Instructions: Foot Sprain (ED) Referrals: CARROL SALINAS [Primary Care Provider] - 1 week
== END 2024-11-21 18:10 | disposition home or self-care (01) ==
PROVIDERS: Emergency Provider Emergency Medicine; PCP Internal Medicine
DX: S93.601A Unspecified sprain of right foot, initial encounter (principal); X50.1XXA Overexertion from prolonged static or awkward postures, initial encounter; F17.200 Nicotine dependence, unspecified, uncomplicated
CPT/HCPCS: 73610; 73630; 99284